=== PATIENT | male | born 1970 | race African-American/Black ===

== ENCOUNTER 2018-12-25 11:36 | Emergency (ER) | payer BC ==
[~2018-12-25] VITALS: Ht 170.2 cm; Wt 127.3 kg
[~2018-12-25 11:36] MED LIST: ACCOLATE10 MG PO; AMOX/K CLAV500 MG PO; ANUSOL-HC25 MG RE; ATENOLOL25 MG OR; ATENOLOL50 MG; ATORVASTATIN PO; AUGMENTIN875TAB PO; BACTRIM DS1 TAB OR; CHOLESTEROL MED; CLARITIN10 M1 PO; ECOTRIN LOW STR81 MG PO; FLEXERIL PO; FLONASE NASAL50 MCG; LANSOPRAZOLE30 MG; LEVOTHYROXIN75 MC1 PO; LORTAB 5 OR; LORTAB 5/3255 MG PO; LORTAB 7.5 OR; LORTAB5 PO; LOVASTATIN10 M1; MEDDOSEPAK OR; METFORMIN500 M1 PO; NAPROSYN500 MG PO; NAPROXEN PO; NO HOME MEDS; PREDNISONE10 MG PO; ROBITUSSIN AC10 ML PO; TRAMADOL HCL50 MG OR; ULTRAM50 M1 PO; VERAMYST27.5 MCG; VERAPAMIL; VERAPAMIL40 MG OR; VITAMIN; ZOFRAN ODT8 MG OR; ZPAK PO
[2018-12-25] MEDS ORDERED: CEPHALEXIN500 M1 PO (11:48)
[2018-12-25] MEDS ORDERED: BACTRIM DS1 TAB PO (11:48)
[2018-12-25 12:39] VITALS: BP 173/76
== END 2018-12-25 12:40 | disposition home or self-care (01) | DRG 603 ==
LOC: ED 11:36
PROC: 0H95XZZ Drainage of Chest Skin, External Approach (ICD-10-PCS; principal; 2018-12-25)
DX: L02.213 Cutaneous abscess of chest wall (principal); E11.9 Type 2 diabetes mellitus without complications; F17.200 Nicotine dependence, unspecified, uncomplicated

== ENCOUNTER 2018-12-27 09:28 | Emergency (ER) | payer BC ==
[~2018-12-27] VITALS: Ht 170.2 cm; Wt 120.0 kg
[~2018-12-27 09:28] MED LIST changes: +BACTRIM DS1 TAB PO; +CEPHALEXIN500 M1 PO
[2018-12-27 09:59] VITALS: BP 138/83
== END 2018-12-27 10:04 | disposition home or self-care (01) | DRG 951 ==
LOC: ED 09:28
DX: Z48.01 Encounter for change or removal of surgical wound dressing (principal)

== ENCOUNTER 2019-08-16 10:24 | Emergency (ER) | payer BC ==
[~2019-08-16] VITALS: Ht 170.2 cm; Wt 127.0 kg
[2019-08-16 10:29] VITALS: BP 167/88
== END 2019-08-16 11:05 | disposition home or self-care (01) | DRG 605 ==
LOC: ED 10:24
DX: S61.012A Laceration without foreign body of left thumb without damage to nail, initial encounter (principal); W26.0XXA Contact with knife, initial encounter; Y93.G3 Activity, cooking and baking; Y92.000 Kitchen of unspecified non-institutional (private) residence as the place of occurrence of the external cause

== ENCOUNTER 2020-03-06 17:54 | Emergency (ER) | payer BC ==
[~2020-03-06] VITALS: Ht 170.2 cm; Wt 150.0 kg
[2020-03-06 18:40] LABS: HEMATOCRIT 44.3 % (39.0-50.0); IMMATURE GRANULOCYTES 0.6 % (0.0-5.0); MEAN CORPUSCULAR HGB 33.6 pG CALC (26.0-32.0); MEAN CORPUSCULAR HGB CONC 33.9 g/dL CAL (32.0-36.0); NEUT# 9.12 thou/uL (1.82-7.42); RED BLOOD COUNT 4.47 mill/uL (4.70-6.10); RED CELL DISTRI WIDTH 14.2 % (11.5-15.5)
[2020-03-06 18:41] LABS: MEAN CELL VOLUME 99.1 fL CALC (80.0-100.0)
[2020-03-06 18:58] LABS: ALBUMIN 4.6 g/dL (3.2-5.0); ALKALINE PHOSPHATASE 90 u/l (38-126); BILIRUBIN, TOTAL 0.7 mg/dL (0.0-1.4); BUN 10 mg/dL (9-20); BUN/CREATININE RATIO 13 (12-20 (CALC)); CARBON DIOXIDE 30 mmol/l (22-30); CHLORIDE 99 mmol/l (95-108); CREATININE 0.7 mg/dL (0.7-1.3); GFR > 60 ML/MIN (>=60 (CALC)); GFR FOR AFR.AMER. > 60 ML/MIN (>=60 (CALC)); SODIUM 135 mmol/l (137-146); TOTAL PROTEIN 8.8 g/dL (6.3-8.2)
[2020-03-06 18:59] LABS: ANION GAP 10 (6-22 (CALC)); POTASSIUM 3.7 mmol/l (3.5-5.1); SGOT/AST 37 u/l (17-59)
[2020-03-06 19:37] VITALS: BP 167/75
== END 2020-03-06 19:37 | disposition short-term general hospital (02) | DRG 311 ==
LOC: ED 17:54
PROVIDERS: Family Medicine
DX: I20.0 Unstable angina (principal); I10 Essential (primary) hypertension; E11.9 Type 2 diabetes mellitus without complications; F17.210 Nicotine dependence, cigarettes, uncomplicated; Z20.828 Contact with and (suspected) exposure to other viral communicable diseases
CPT/HCPCS: J1644

== ENCOUNTER 2020-03-14 08:22 | Emergency (ER) | payer BC ==
[~2020-03-14] VITALS: Ht 170.2 cm; Wt 140.5 kg
[2020-03-14 08:47] LABS: HEMATOCRIT 46.6 % (39.0-50.0); HEMOGLOBIN 15.8 g/dl (14.0-18.0); IMMATURE GRANULOCYTES 0.6 % (0.0-5.0); MEAN CELL VOLUME 98.5 fL CALC (80.0-100.0); MEAN CORPUSCULAR HGB 33.4 pG CALC (26.0-32.0); MEAN CORPUSCULAR HGB CONC 33.9 g/dL CAL (32.0-36.0); NEUT# 8.7 thou/uL (1.82-7.42); RED BLOOD COUNT 4.73 mill/uL (4.70-6.10); RED CELL DISTRI WIDTH 13.2 % (11.5-15.5)
[2020-03-14] MEDS ORDERED: LISINOPRIL10 MG PO (08:59)
[2020-03-14] MEDS ORDERED: BRILINTA90 MG PO (09:00)
[2020-03-14] MEDS ORDERED: ATORVASTATIN CA80 MG PO (09:00)
[2020-03-14] MEDS ORDERED: METOPROL TAR25 MG PO (09:01)
[2020-03-14 09:09] LABS: ALBUMIN 4.6 g/dL (3.2-5.0); ALKALINE PHOSPHATASE 101 u/l (38-126); BILIRUBIN, TOTAL 0.6 mg/dL (0.0-1.4); BUN 11 mg/dL (9-20); BUN/CREATININE RATIO 13 (12-20 (CALC)); CHLORIDE 100 mmol/l (95-108); CREATININE 0.8 mg/dL (0.7-1.3); GFR > 60 ML/MIN (>=60 (CALC)); GFR FOR AFR.AMER. > 60 ML/MIN (>=60 (CALC)); LIPASE 86 u/l (23-300); POTASSIUM 4.1 mmol/l (3.5-5.1); SGOT/AST 29 u/l (17-59); SODIUM 133 mmol/l (137-146); TOTAL PROTEIN 8.3 g/dL (6.3-8.2)
[2020-03-14 09:12] LABS: ACT PARTIAL THROMBO TIME 22.3 SECONDS (20.0-32.5); PROTHROMBIN TIME 9.9 SECONDS (9.0-12.5)
[2020-03-14 09:20] LABS: ANION GAP 15 (6-22 (CALC)); CARBON DIOXIDE 22 mmol/l (22-30)
[2020-03-14 09:25] VITALS: BP 190/88
== END 2020-03-14 09:45 | disposition short-term general hospital (02) | DRG 282 ==
LOC: ED 08:22
PROVIDERS: Student in an Organized Health Care Education/Training Program
DX: I21.3 ST elevation (STEMI) myocardial infarction of unspecified site (principal); I10 Essential (primary) hypertension; E11.9 Type 2 diabetes mellitus without complications; I25.10 Atherosclerotic heart disease of native coronary artery without angina pectoris; F17.200 Nicotine dependence, unspecified, uncomplicated; Z95.5 Presence of coronary angioplasty implant and graft; Z79.02 Long term (current) use of antithrombotics/antiplatelets

== ENCOUNTER 2020-04-02 06:16 | Emergency (ER) | payer BC ==
[~2020-04-02] VITALS: Ht 170.2 cm; Wt 135.4 kg
[~2020-04-02 06:16] MED LIST changes: +ATORVASTATIN CA80 MG PO; +BRILINTA90 MG PO; +LISINOPRIL10 MG PO; +METOPROL TAR25 MG PO
[2020-04-02 07:04] LABS: IMMATURE GRANULOCYTES 0.5 % (0.0-5.0); MEAN CELL VOLUME 96.6 fL CALC (80.0-100.0); MEAN CORPUSCULAR HGB 31.2 pG CALC (26.0-32.0); MEAN CORPUSCULAR HGB CONC 32.3 g/dL CAL (32.0-36.0); NEUT# 9.47 thou/uL (1.82-7.42); RED BLOOD COUNT 4.14 mill/uL (4.70-6.10); RED CELL DISTRI WIDTH 12.6 % (11.5-15.5)
[2020-04-02 07:12] LABS: HEMOGLOBIN 12.9 g/dl (14.0-18.0)
[2020-04-02 07:13] LABS: ALKALINE PHOSPHATASE 80 u/l (38-126); ANION GAP 11 (6-22 (CALC)); BUN 9 mg/dL (9-20); BUN/CREATININE RATIO 11 (12-20 (CALC)); CARBON DIOXIDE 25 mmol/l (22-30); CHLORIDE 104 mmol/l (95-108); CREATININE 0.8 mg/dL (0.7-1.3); GFR > 60 ML/MIN (>=60 (CALC)); GFR FOR AFR.AMER. > 60 ML/MIN (>=60 (CALC)); POTASSIUM 3.8 mmol/l (3.5-5.1); SGOT/AST 21 u/l (17-59); SODIUM 136 mmol/l (137-146); TOTAL PROTEIN 7.1 g/dL (6.3-8.2)
[2020-04-02 07:25] LABS: MYOGLOBIN 24 ng/mL (0 - 121)
[2020-04-02 07:33] LABS: ALBUMIN 3.5 g/dL (3.2-5.0); BILIRUBIN, TOTAL 1.1 mg/dL (0.0-1.4)
[2020-04-02 08:14] LABS: URINE BILIRUBIN - DIPSTICK NEGATIVE (NEGATIVE); URINE BLOOD DIPSTICK NEGATIVE (NEGATIVE); URINE COLOR YELLOW; URINE GLUCOSE - DIPSTICK NEGATIVE (NEGATIVE); URINE KETONE TRACE mg/dL (NEGATIVE); URINE LEUK ESTERASE NEGATIVE (NEGATIVE); URINE NITRITE - DIPSTICK NEGATIVE (Negative); URINE PH 5.5 (4.5-8.0); URINE PROTEIN - DIPSTICK NEGATIVE (NEG-TRACE); URINE SPECIFIC GRAVITY >=1.030
[2020-04-02 09:27] LABS: C-REACTIVE PROTEIN 5.2 mg/dL (0-0.9)
[2020-04-02] MEDS ORDERED: METOPROL TAR25 MG PO (13:06)
[2020-04-02] MEDS ORDERED: METOPROL TAR100 MG PO (13:06)
[2020-04-02] MEDS ORDERED: ASPIRIN81 MG PO (13:07)
[2020-04-02 14:14] VITALS: BP 134/60
== END 2020-04-02 14:05 | disposition short-term general hospital (02) | DRG 193 ==
LOC: ED 06:16 → ED-I 07:39 → ED 14:05
PROVIDERS: Emergency Medicine; Family Medicine
DX: J18.9 Pneumonia, unspecified organism (principal); I11.0 Hypertensive heart disease with heart failure; I50.23 Acute on chronic systolic (congestive) heart failure; I25.10 Atherosclerotic heart disease of native coronary artery without angina pectoris; E11.9 Type 2 diabetes mellitus without complications; I25.2 Old myocardial infarction; F17.200 Nicotine dependence, unspecified, uncomplicated; Z95.5 Presence of coronary angioplasty implant and graft; Z20.828 Contact with and (suspected) exposure to other viral communicable diseases
CPT/HCPCS: J0692; Q9967

== ENCOUNTER 2020-06-03 06:35 | Observation (INO) | payer BC ==
[~2020-06-03] VITALS: Ht 170.2 cm; Wt 140.6 kg
[~2020-06-03 06:35] MED LIST changes: +ASPIRIN81 MG PO; +METOPROL TAR100 MG PO
--- NOTE | 2020-06-03 06:38 | NUR ---
PT WHEELED STRAIGHT BACK TO ROOM 10
[2020-06-03 07:11] LABS: HEMATOCRIT 40.6 % (39.0-50.0); HEMOGLOBIN 12.9 g/dl (14.0-18.0); IMMATURE GRANULOCYTES 0.3 % (0.0-5.0); MEAN CORPUSCULAR HGB 28.5 pG CALC (26.0-32.0); MEAN CORPUSCULAR HGB CONC 31.8 g/dL CAL (32.0-36.0); NEUT# 8.39 thou/uL (1.82-7.42); RED BLOOD COUNT 4.52 mill/uL (4.70-6.10); RED CELL DISTRI WIDTH 12.9 % (11.5-15.5)
[2020-06-03 07:17] LABS: MEAN CELL VOLUME 89.8 fL CALC (80.0-100.0)
[2020-06-03 07:30] LABS: ALBUMIN 3.9 g/dL (3.2-5.0); ALKALINE PHOSPHATASE 87 u/l (38-126); ANION GAP 15 (6-22 (CALC)); BILIRUBIN, TOTAL 0.9 mg/dL (0.0-1.4); BUN 13 mg/dL (9-20); BUN/CREATININE RATIO 14 (12-20 (CALC)); CARBON DIOXIDE 26 mmol/l (22-30); CHLORIDE 102 mmol/l (95-108); CREATININE 0.9 mg/dL (0.7-1.3); GFR > 60 ML/MIN (>=60 (CALC)); GFR FOR AFR.AMER. > 60 ML/MIN (>=60 (CALC)); POTASSIUM 3.9 mmol/l (3.5-5.1); SGOT/AST 14 u/l (17-59); SODIUM 139 mmol/l (137-146); TOTAL PROTEIN 7.6 g/dL (6.3-8.2)
--- NOTE | 2020-06-03 07:30 | NUR ---
BP 99/57 NITRO PASTE REMOVED FROM RIGHT SHOULDER. AWARE.
[2020-06-03 07:38] LABS: MYOGLOBIN 18 ng/mL (0 - 121)
[2020-06-03 07:44] LABS: D-DIMER 0.51 mg/L (0.19-0.60)
[2020-06-03 07:46] LABS: URINE BILIRUBIN - DIPSTICK NEGATIVE (NEGATIVE); URINE BLOOD DIPSTICK NEGATIVE (NEGATIVE); URINE COLOR YELLOW; URINE GLUCOSE - DIPSTICK NEGATIVE (NEGATIVE); URINE KETONE NEGATIVE (NEGATIVE); URINE LEUK ESTERASE NEGATIVE (NEGATIVE); URINE NITRITE - DIPSTICK NEGATIVE (Negative); URINE PH 5.5 (4.5-8.0); URINE PROTEIN - DIPSTICK NEGATIVE (NEG-TRACE); URINE UROBILINOGEN - DIPSTICK 0.2 E.U./dL (0.2)
[2020-06-03 07:48] LABS: PROTHROMBIN TIME 9.8 SECONDS (9.0-12.5)
--- NOTE | 2020-06-03 07:50 | NUR ---
COVID SWAB COLLECTED, ISOLATION PRECAUTIONS INITIATED.
--- NOTE | 2020-06-03 08:45 | NUR ---
ON STRETCHER WITH HOB ELEVATED, RESPS EVEN AND UNLABORED ON ROOM AIR, MONITORS ATTACHED. PERSONAL LIFE VEST IN PLACE. DENIES NEEDS AT THIS TIME.
[2020-06-03] MEDS ORDERED: SPIRONOLACT50 MG PO (08:54)
[2020-06-03] MEDS ORDERED: FUROSEMIDE20 MG PO (08:54)
[2020-06-03] MEDS ORDERED: PANTOPRAZOLE SO40 M1 PO (08:55)
[2020-06-03] MEDS ORDERED: METFORMIN500 M2 PO (08:55)
[2020-06-03] MEDS ORDERED: GLIPIZIDE5 MG PO (08:56)
[2020-06-03] MEDS ORDERED: ISOSORB DIN10 MG PO (08:56)
--- NOTE | 2020-06-03 09:40 | NUR ---
MD AT BEDSIDE TO DISCUSS RESULTS AND POC.
--- NOTE | 2020-06-03 10:45 | NUR ---
REPORT CALLED TO SUZANNA RUSS.
[2020-06-03 11:00] VITALS: BP 102/40
--- NOTE | 2020-06-03 11:00 | NUR ---
TO ROOM 262 VIA WHEELCHAIR. BEDSIDE REPORT GIVEN TO SUZANNA RUSS.
--- NOTE | 2020-06-03 11:00 | NUR ---
RCIEVED REPORT FROM Mandy ANGEL RN. PT TRANSPORTED TO [facility] ROOM 262 VIA WHEELCHAIR ACCOMPAINED BY ER STAFF. PT AMBULATED WITH STEADY GAIT FROM WHEELCHAIR TO BED WITHH STEADY GAIT. INTRODUCED SELF TO PT AND DISCUSSED POC. PT IS A/O X3. ASSESSMENT AND VITALS COMPLETED AT THIS TIME. BP 102/40, HR 66. RESPIATIONS ARE EVEN AND UNLABORED ON ROOM AIR. HEART RHYTHM IS NORMAL WITH TELE IN PLACE. PT PRESENTS WITH LIFE VEST THAT PT WEARS AT ALL TIMES. BOWEL SOUNDS ARE ACTIVE IN ALL QUADRANTS,LAST REPORTED BM 06/02/2020. RADIAL PULSES STRONG. PEDAL PULSES WEAK WITH TRACE EDEMA. #20G IN LFA FLUSHED, SITE APPEARS HEALTHY AND PATENT. PT INFORMS WRITTER THAT HE HAS NO ALLERGIES, ALLERGY BAND APPLIED.PT ORIENTED TO ROOM AND CALL LIGHT SYSTEM. PT DENIES ANY PAIN OR DISCOMFORTS AT THIS TIME. ALL SAFETY PRECAUTIONS ARE IN PLACE WITH CALL LIGHT IN REACH. WILL CONTINUE TO MONITOR
[2020-06-03 15:00] VITALS: BP 108/37
--- NOTE | 2020-06-03 16:49 | NUR ---
PT RESTING IN SEMI FOWLERS POSITION UPON ENTERING ROOM. RESPIRATIONS ARE EVEN AND UNLABORED WITH NO SIGNS OF DSITRESS NOTED. INFORMED PT ON THE NEED OF TICAGRELOR. PT INFORMED WRITTER THAT DAUGHTER WILL BRING IT TO HOSPITAL. ALL SAFETY PRECAUTIONS ARE IN PLACE WIHT CALL LIGHT IN REACH. WILL CONTINUE TO MONITOR
--- NOTE | 2020-06-03 19:00 | NUR ---
RECEIVED REPORT FROM NURSE BRISENO, PATIENT APPEARS TO BE SLEEPING ON PRONE POSITION, BREATHING SHALLOW UNLABORED, CALL LIGHT AT REACH.
[2020-06-03 19:23] VITALS: BP 112/51
--- NOTE | 2020-06-03 21:00 | NUR ---
PATIENT ALERT ORIENTYED, ABLE TO MAKE NEEDS KNOWN, WITH SALINE LOCK ON RAC PATENT FLUSHES WELL, DENIES PAIN OR DISCOMFORTS, REMAINS ON TELE SR WITH PVC 93, LBM 06/02, BS 98, BREATHING EVEN UNLAORED CALL LIGHT AT REACH.
[2020-06-03 22:34] VITALS: BP 110/62
--- NOTE | 2020-06-03 22:43 | NUR ---
SPOKE TO ED TELE MAINTAINING AT SR 81, PT C/O SHARP MID STERNAL PAIN PS 3/10, V/S TAKEN AND RECORDED FOLLOWS: bP 110/62 TEMP 96.8 HR 83 R 18, POX 95% ON RA, EKG ORDERED.
--- NOTE | 2020-06-03 23:10 | NUR ---
SPOKE TO DR. LANZA WITH ORDERS MADE, FAX TO PHARMACY.
--- NOTE | 2020-06-03 23:10 | NUR ---
SPOKE TO DR. LANZA WITH ORDERS MADE AND TO DO TROPONIN SCHEDULED AT 12AM
[2020-06-03 23:45] VITALS: BP 96/61
--- NOTE | 2020-06-03 23:59 | NUR ---
PATIENT STATED PAIN RELIEF PS 0/10, PATIENT CURRENTLY RESTING IN BED, EYES CLOSED, BREATHING UNLABORED, CALL LIGHT AT REACH.
[2020-06-04 04:29] VITALS: BP 100/58
[2020-06-04 04:52] LABS: HEMATOCRIT 39.5 % (39.0-50.0); HEMOGLOBIN 12.6 g/dl (14.0-18.0); IMMATURE GRANULOCYTES 0.4 % (0.0-5.0); MEAN CELL VOLUME 88.6 fL CALC (80.0-100.0); MEAN CORPUSCULAR HGB 28.3 pG CALC (26.0-32.0); MEAN CORPUSCULAR HGB CONC 31.9 g/dL CAL (32.0-36.0); NEUT# 8.21 thou/uL (1.82-7.42); RED BLOOD COUNT 4.46 mill/uL (4.70-6.10)
--- NOTE | 2020-06-04 04:58 | NUR ---
PATIENT RESTING IN BED, DENIES CP, BREATHING UNLABORED, RESTING WITH EYES CLOSED, CALL LIGHT AT REACH.
[2020-06-04 05:10] LABS: ALBUMIN 3.6 g/dL (3.2-5.0); ALKALINE PHOSPHATASE 70 u/l (38-126); ANION GAP 14 (6-22 (CALC)); BUN 14 mg/dL (9-20); BUN/CREATININE RATIO 16 (12-20 (CALC)); CALCULATED LDLCHOLESTEROL 77 mg/dL (62-129 (CALC)); CARBON DIOXIDE 26 mmol/l (22-30); CHLORIDE 102 mmol/l (95-108); CREATININE 0.9 mg/dL (0.7-1.3); GFR > 60 ML/MIN (>=60 (CALC)); GFR FOR AFR.AMER. > 60 ML/MIN (>=60 (CALC)); HDL CHOLESTEROL 30 mg/dL (>=40); MAGNESIUM 1.8 mg/dL (1.6-2.3); POTASSIUM 4.5 mmol/l (3.5-5.1); SGOT/AST 14 u/l (17-59); SODIUM 137 mmol/l (137-146); TOTAL TRIGLYCERIDES 86 mg/dl (30-149); VLDL CHOLESTROL 17 mg/dl (8-62 (CALC))
[2020-06-04 05:16] LABS: CHOLESTEROL HDL RATIO 4.1 (<4.4 (CALC)); TOTAL CHOLESTEROL 124 mg/dl (0-199)
[2020-06-04 07:40] VITALS: BP 110/58
--- NOTE | 2020-06-04 07:40 | NUR ---
ASSESSMENT IS COMPLETED: IV SITE IS FREE FROM REDNESS OR EDEMA HR IS REG,PULSES ARE STRONG X4, ABD IS SOFT WITH ACTIVE BS. BREATH SOUNDS ARE CLEAR,AND DIMINISHED. TELE MONITOR IN PLACE CONTINUE TO OBSERVE AND MONITOR.
[2020-06-04 09:32] VITALS: BP 110/58
[2020-06-04] MEDS ORDERED: FUROSEMIDE20 MG PO (09:44)
[2020-06-04] MEDS ORDERED: LISINOPRIL10 MG PO (09:44)
--- NOTE | 2020-06-04 10:20 | NUR ---
IV SITE AND TELE DISCONTINEUD CATHETER INTACT. NO REDNESS OR EDEMA. DISCHARGE INSTRUCTIONS GIVEN AND VERBALIZED UNDERSTANDING.
--- NOTE | 2020-06-04 10:30 | NUR ---
PT AMBULATED OFF THE UNIT. WITH NO DISTRESS NOTED. Discharge instructions given. Patient verbalizes understanding of same. Discharged in stable condition via AMBULATED to Home with family. All belongings sent with pt.
== END 2020-06-04 10:20 | disposition home or self-care (01) | DRG 293 ==
LOC: ED 06:35 → ED-I 09:20 → ED 09:33 → MS2 09:34
PROVIDERS: Family Medicine; Nurse Practitioner; ADMIT Internal Medicine; ATTEND Internal Medicine
DX: I11.0 Hypertensive heart disease with heart failure (principal); I50.9 Heart failure, unspecified; I25.5 Ischemic cardiomyopathy; E11.9 Type 2 diabetes mellitus without complications; E78.5 Hyperlipidemia, unspecified; K21.9 Gastro-esophageal reflux disease without esophagitis; I25.2 Old myocardial infarction; F17.200 Nicotine dependence, unspecified, uncomplicated; Z79.84 Long term (current) use of oral hypoglycemic drugs; Z95.5 Presence of coronary angioplasty implant and graft; Z20.828 Contact with and (suspected) exposure to other viral communicable diseases
CPT/HCPCS: G0378

== ENCOUNTER 2020-08-25 08:36 | Emergency (ER) | payer BC ==
[~2020-08-25] VITALS: Ht 170.2 cm; Wt 140.9 kg
[~2020-08-25 08:36] MED LIST changes: +FUROSEMIDE20 MG PO; +GLIPIZIDE5 MG PO; +ISOSORB DIN10 MG PO; +METFORMIN500 M2 PO; +PANTOPRAZOLE SO40 M1 PO; +SPIRONOLACT50 MG PO
[2020-08-25 09:36] LABS: ALBUMIN 4.1 g/dL (3.2-5.0); ALKALINE PHOSPHATASE 77 u/l (38-126); ANION GAP 15 (6-22 (CALC)); BUN 15 mg/dL (9-20); BUN/CREATININE RATIO 14 (12-20 (CALC)); CARBON DIOXIDE 26 mmol/l (22-30); CHLORIDE 104 mmol/l (95-108); GFR > 60 ML/MIN (>=60 (CALC)); GFR FOR AFR.AMER. > 60 ML/MIN (>=60 (CALC)); POTASSIUM 3.9 mmol/l (3.5-5.1); SGOT/AST 15 u/l (17-59); SODIUM 141 mmol/l (137-146)
[2020-08-25 09:40] LABS: HEMATOCRIT 39.8 % (39.0-50.0); HEMOGLOBIN 12.5 g/dl (14.0-18.0); IMMATURE GRANULOCYTES 0.4 % (0.0-5.0); MEAN CORPUSCULAR HGB 26.4 pG CALC (26.0-32.0); MEAN CORPUSCULAR HGB CONC 31.4 g/dL CAL (32.0-36.0); NEUT# 10.05 thou/uL (1.82-7.42); RED BLOOD COUNT 4.74 mill/uL (4.70-6.10); RED CELL DISTRI WIDTH 14.3 % (11.5-15.5)
[2020-08-25] MEDS ORDERED: MIDODRINE HYDR2.5 MG PO (09:58)
[2020-08-25] MEDS ORDERED: PREDNISONE50 MG PO (11:13)
[2020-08-25] MEDS ORDERED: ZPAK PO (11:13)
[2020-08-25] MEDS ORDERED: TAM75CAP PO (11:18)
[2020-08-25 12:13] VITALS: BP 104/68
== END 2020-08-25 12:13 | disposition home or self-care (01) | DRG 292 ==
LOC: ED 08:36
PROVIDERS: Family Medicine
DX: I11.0 Hypertensive heart disease with heart failure (principal); J44.1 Chronic obstructive pulmonary disease with (acute) exacerbation; I50.9 Heart failure, unspecified; J11.1 Influenza due to unidentified influenza virus with other respiratory manifestations; E11.9 Type 2 diabetes mellitus without complications; Z95.5 Presence of coronary angioplasty implant and graft; Z79.84 Long term (current) use of oral hypoglycemic drugs; Z87.891 Personal history of nicotine dependence; Z20.828 Contact with and (suspected) exposure to other viral communicable diseases

== ENCOUNTER 2020-09-24 08:11 | Emergency (ER) | payer BC ==
[~2020-09-24] VITALS: Ht 170.2 cm; Wt 140.0 kg
[~2020-09-24 08:11] MED LIST changes: +MIDODRINE HYDR2.5 MG PO; +PREDNISONE50 MG PO; +TAM75CAP PO
[2020-09-24 08:43] VITALS: BP 102/55
== END 2020-09-24 08:43 | disposition home or self-care (01) | DRG 556 ==
LOC: ED 08:11
DX: M79.652 Pain in left thigh (principal); E11.9 Type 2 diabetes mellitus without complications; I11.0 Hypertensive heart disease with heart failure; I50.9 Heart failure, unspecified; Z95.5 Presence of coronary angioplasty implant and graft; Z95.820 Peripheral vascular angioplasty status with implants and grafts; Z79.84 Long term (current) use of oral hypoglycemic drugs

== ENCOUNTER 2021-02-16 06:30 | Emergency (ER) | payer BC ==
[~2021-02-16] VITALS: Ht 170.2 cm; Wt 125.0 kg
[2021-02-16 06:59] VITALS: BP 148/82
[2021-02-16] MEDS ORDERED: BACTRIM DS1 TAB PO (07:26)
== END 2021-02-16 07:48 | disposition home or self-care (01) | DRG 603 ==
LOC: ED 06:30
PROC: 0H95XZZ Drainage of Chest Skin, External Approach (ICD-10-PCS; principal; 2021-02-16)
DX: L02.213 Cutaneous abscess of chest wall (principal); E11.9 Type 2 diabetes mellitus without complications; I11.0 Hypertensive heart disease with heart failure; I50.9 Heart failure, unspecified; Z95.5 Presence of coronary angioplasty implant and graft; Z95.820 Peripheral vascular angioplasty status with implants and grafts; Z79.84 Long term (current) use of oral hypoglycemic drugs

== ENCOUNTER 2021-02-18 07:41 | Emergency (ER) | payer BC ==
[~2021-02-18] VITALS: Ht 170.2 cm; Wt 86.0 kg
[2021-02-18 08:35] VITALS: BP 115/54
[2021-02-18] MEDS ORDERED: LASIX 40 MG TAB40 MG PO (08:49)
[2021-02-18] MEDS ORDERED: PROAMATINE2.5 MG PO (08:50)
[2021-02-18] MEDS ORDERED: ENTRESTO 24-261 TAB PO (08:51)
[2021-02-18] MEDS ORDERED: CARVEDILOL12.5 MG PO (08:52)
[2021-02-18] MEDS ORDERED: ISOSORBIDE MONO30 MG PO (08:52)
== END 2021-02-18 08:40 | disposition home or self-care (01) | DRG 951 ==
LOC: ED 07:41
DX: Z48.01 Encounter for change or removal of surgical wound dressing (principal)

== ENCOUNTER 2021-04-05 08:16 | Emergency (ER) | payer BC ==
[~2021-04-05] VITALS: Ht 170.2 cm; Wt 136.4 kg
[~2021-04-05 08:16] MED LIST changes: +CARVEDILOL12.5 MG PO; +ENTRESTO 24-261 TAB PO; +ISOSORBIDE MONO30 MG PO; +LASIX 40 MG TAB40 MG PO; +PROAMATINE2.5 MG PO
[2021-04-05 09:57] LABS: HEMATOCRIT 38.1 % (39.0-50.0); IMMATURE GRANULOCYTES 0.4 % (0.0-5.0); MEAN CELL VOLUME 84.5 fL CALC (80.0-100.0); MEAN CORPUSCULAR HGB 26.6 pG CALC (26.0-32.0); MEAN CORPUSCULAR HGB CONC 31.5 g/dL CAL (32.0-36.0); NEUT# 9.22 thou/uL (1.82-7.42); RED BLOOD COUNT 4.51 mill/uL (4.70-6.10); RED CELL DISTRI WIDTH 15.5 % (11.5-15.5)
[2021-04-05 10:14] LABS: ALBUMIN 3.8 g/dL (3.2-5.0); ALKALINE PHOSPHATASE 80 u/l (38-126); ANION GAP 14 (6-22 (CALC)); BILIRUBIN, TOTAL 0.7 mg/dL (0.0-1.4); BUN 15 mg/dL (9-20); BUN/CREATININE RATIO 14 (12-20 (CALC)); CARBON DIOXIDE 27 mmol/l (22-30); CHLORIDE 99 mmol/l (95-108); GFR > 60 ML/MIN (>=60 (CALC)); GFR FOR AFR.AMER. > 60 ML/MIN (>=60 (CALC)); POTASSIUM 4.1 mmol/l (3.5-5.1); SGOT/AST 15 u/l (17-59); SODIUM 136 mmol/l (137-146); TOTAL PROTEIN 7.6 g/dL (6.3-8.2)
[2021-04-05] MEDS ORDERED: KEFLEX500 MG PO (10:49)
[2021-04-05] MEDS ORDERED: BACTRIM DS1 TAB PO (10:49)
[2021-04-05 10:52] VITALS: BP 107/66
== END 2021-04-05 10:58 | disposition home or self-care (01) | DRG 603 ==
LOC: ED 08:16
PROC: 0H95XZZ Drainage of Chest Skin, External Approach (ICD-10-PCS; principal; 2021-04-05)
DX: L02.213 Cutaneous abscess of chest wall (principal); E11.9 Type 2 diabetes mellitus without complications; I11.0 Hypertensive heart disease with heart failure; I50.9 Heart failure, unspecified; Z95.5 Presence of coronary angioplasty implant and graft; Z79.84 Long term (current) use of oral hypoglycemic drugs

== ENCOUNTER 2021-04-20 06:08 | Emergency (ER) | payer BC ==
[~2021-04-20 06:08] MED LIST changes: +KEFLEX500 MG PO
[2021-04-20 06:54] LABS: HEMATOCRIT 41.2 % (39.0-50.0); HEMOGLOBIN 12.2 g/dl (14.0-18.0); IMMATURE GRANULOCYTES 0.6 % (0.0-5.0); MEAN CELL VOLUME 89.4 fL CALC (80.0-100.0); MEAN CORPUSCULAR HGB 26.5 pG CALC (26.0-32.0); MEAN CORPUSCULAR HGB CONC 29.6 g/dL CAL (32.0-36.0); NEUT# 7.05 thou/uL (1.82-7.42); RED BLOOD COUNT 4.61 mill/uL (4.70-6.10); RED CELL DISTRI WIDTH 15.2 % (11.5-15.5)
[2021-04-20 07:04] LABS: D-DIMER 0.58 mg/L (0.19-0.60)
[2021-04-20 07:05] LABS: ALBUMIN 3.4 g/dL (3.2-5.0); ALKALINE PHOSPHATASE 76 u/l (38-126); AMYLASE 68 u/l (30-110); BUN 14 mg/dL (9-20); BUN/CREATININE RATIO 11 (12-20 (CALC)); CHLORIDE 100 mmol/l (95-108); CREATININE 1.3 mg/dL (0.7-1.3); GFR 58 ML/MIN (>=60 (CALC)); GFR FOR AFR.AMER. > 60 ML/MIN (>=60 (CALC)); LIPASE 113 u/l (23-300); MAGNESIUM 2.2 mg/dL (1.6-2.3); POTASSIUM 3.9 mmol/l (3.5-5.1); SGOT/AST 25 u/l (17-59); SODIUM 137 mmol/l (137-146); TOTAL PROTEIN 6.9 g/dL (6.3-8.2)
[2021-04-20 07:06] LABS: ANION GAP 21 (6-22 (CALC)); BILIRUBIN, TOTAL 0.4 mg/dL (0.0-1.4); CARBON DIOXIDE 20 mmol/l (22-30)
[2021-04-20 07:15] LABS: PROTHROMBIN TIME 10.4 SECONDS (9.0-12.5)
[2021-04-20 07:16] LABS: MYOGLOBIN 40 ng/mL (0 - 121)
[2021-04-20 08:38] LABS: URINE BILIRUBIN - DIPSTICK NEGATIVE (NEGATIVE); URINE BLOOD DIPSTICK TRACE-INTACT (NEGATIVE); URINE COLOR YELLOW; URINE GLUCOSE - DIPSTICK >=1000 mg/dL (NEGATIVE); URINE KETONE NEGATIVE (NEGATIVE); URINE LEUK ESTERASE NEGATIVE (NEGATIVE); URINE PH 5.5 (4.5-8.0); URINE PROTEIN - DIPSTICK NEGATIVE (NEG-TRACE); URINE SPECIFIC GRAVITY 1.025; URINE UROBILINOGEN - DIPSTICK 0.2 E.U./dL (0.2)
[2021-04-20 08:40] LABS: URINE NITRITE - DIPSTICK NEGATIVE (Negative)
--- NOTE | 2021-04-20 12:46 | NUR ---
PULLED ET TUBE OUT 2CM. NOW AT23@ LIP.
[2021-04-20 14:09] LABS: HEMATOCRIT 41.2 % (39.0-50.0); HEMOGLOBIN 12.7 g/dl (14.0-18.0); IMMATURE GRANULOCYTES 0.7 % (0.0-5.0); MEAN CELL VOLUME 86.4 fL CALC (80.0-100.0); MEAN CORPUSCULAR HGB 26.6 pG CALC (26.0-32.0); MEAN CORPUSCULAR HGB CONC 30.8 g/dL CAL (32.0-36.0); NEUT# 17.89 thou/uL (1.82-7.42); RED BLOOD COUNT 4.77 mill/uL (4.70-6.10); RED CELL DISTRI WIDTH 15.1 % (11.5-15.5)
[2021-04-20 14:23] LABS: ALBUMIN 3.9 g/dL (3.2-5.0); ALKALINE PHOSPHATASE 79 u/l (38-126); BUN 20 mg/dL (9-20); BUN/CREATININE RATIO 17 (12-20 (CALC)); CHLORIDE 99 mmol/l (95-108); CREATININE 1.2 mg/dL (0.7-1.3); GFR > 60 ML/MIN (>=60 (CALC)); GFR FOR AFR.AMER. > 60 ML/MIN (>=60 (CALC)); SGOT/AST 39 u/l (17-59); SODIUM 138 mmol/l (137-146); TOTAL PROTEIN 7.7 g/dL (6.3-8.2)
[2021-04-20 14:30] LABS: ANION GAP 17 (6-22 (CALC)); BILIRUBIN, TOTAL 0.6 mg/dL (0.0-1.4); CARBON DIOXIDE 27 mmol/l (22-30); POTASSIUM 4.7 mmol/l (3.5-5.1)
--- NOTE | 2021-04-20 16:10 | NUR ---
S: REUBEN COSBY JR is a 50 M who presents with pneumonia. . He has a history of diabetes, HTn, CHF, cardiac stents x2. All medications in patient's chart were reviewed. O: VS: BP 130/73 mmHg, P 78 bpm, RR 26 bpm W 125 kg, HT 67 in, Scr= 1.3 mg/dl, CrCl= 84.3 ml/min A: Blood culture is pending. P: Patient is on Zosyn 4.5 g IV Q6H. Vancomycin ordered for pharmacy to dose. Start Vancomycin 1 g IV Q8H. Vancomycin trough is drawn before the 4th dose on 04/21 @0900. Vancomycin goal trough is between 15-20 mcg/ml. Pharmacy will follow and or advise on antibiotics use as needed.
[2021-04-20 18:26] LABS: CHOLESTEROL HDL RATIO 3.4 (<4.4 (CALC))
[2021-04-20 20:46] LABS: ACT PARTIAL THROMBO TIME 38.7 SECONDS (20.0-32.5); PROTHROMBIN TIME 10.5 SECONDS (9.0-12.5)
[2021-04-20 22:40] VITALS: BP 135/72
== END 2021-04-20 22:40 | disposition short-term general hospital (02) | DRG 208 ==
LOC: ED 06:08
PROVIDERS: Family Medicine
PROC: 5A12012 Performance of Cardiac Output, Single, Manual (ICD-10-PCS; principal; 2021-04-20)
PROC: 5A1935Z Respiratory Ventilation, Less than 24 Consecutive Hours (ICD-10-PCS; 2021-04-20)
PROC: 0BH17EZ Insertion of Endotracheal Airway into Trachea, Via Natural or Artificial Opening (ICD-10-PCS; 2021-04-20)
PROC: 0T9B70Z Drainage of Bladder with Drainage Device, Via Natural or Artificial Opening (ICD-10-PCS; 2021-04-20)
PROC: 02HV33Z Insertion of Infusion Device into Superior Vena Cava, Percutaneous Approach (ICD-10-PCS; 2021-04-20)
DX: J18.9 Pneumonia, unspecified organism (principal); J96.00 Acute respiratory failure, unspecified whether with hypoxia or hypercapnia; I46.8 Cardiac arrest due to other underlying condition; I21.3 ST elevation (STEMI) myocardial infarction of unspecified site; E11.9 Type 2 diabetes mellitus without complications; I11.0 Hypertensive heart disease with heart failure; I50.9 Heart failure, unspecified; Z95.5 Presence of coronary angioplasty implant and graft; Z95.820 Peripheral vascular angioplasty status with implants and grafts; Z79.84 Long term (current) use of oral hypoglycemic drugs; Z20.822 Contact with and (suspected) exposure to COVID-19
CPT/HCPCS: J1644; J1650; Q9967; S0164